=== PATIENT | male | born 1995 | race Caucasian/White ===

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

== ENCOUNTER 2017-07-24 15:37 | Emergency (ER) | payer OTHER ==
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
--- NOTE | 2017-07-24 15:55 | PDOC ---
Attending Attestation - Resident Resident Name: Karishma Mccormack - ED Attending Attestation I have performed the following: I have examined & evaluated the patient, The case was reviewed & discussed with the resident, I agree w/resident's findings & plan, Exceptions are as noted - HPI HPI: 21 yo M history substance abuse presents 3 hours post use of oxycodone. He was given narcan by PD prior to arrival. Patient is currently awake and alert. Offers no complaints. - Physicial Exam PE: GENERAL: Awake, alert, and fully oriented, in no acute distress HEAD: No signs of trauma EYES: PERRLA, EOMI, sclera anicteric, conjunctiva clear ENT: Auricles normal inspection, hearing grossly normal, nares patent, oropharynx clear without exudates. Moist mucosa NECK: Normal ROM, supple, no lymphadenopathy, JVD, or masses LUNGS: Breath sounds equal, clear to auscultation bilaterally. No wheezes, and no crackles HEART: Regular rate and rhythm, normal S1 and S2, no murmurs, rubs or gallops ABDOMEN: Soft, nontender, normoactive bowel sounds. No guarding, no rebound. No masses EXTREMITIES: Normal range of motion, no edema. No clubbing or cyanosis. No cords, erythema, or tenderness NEUROLOGICAL: Cranial nerves II through XII grossly intact. Normal speech, normal gait SKIN: Warm, Dry, normal turgor, no rashes or lesions noted. - Medical Decision Making 07/24/17 16:05 Pt is 3 hours post ingestion of oxycodone (without tylenol). He was given narcan by EMS, he is currently awake and alert. Will cont to monitor for alertness. As he used 3 hours ago, he is likely to maintain consciousness. 07/24/17 18:50 Late entry. Patient was initially stable for discharge, however, when he was getting ready to leave, he went to the ED bathroom multiple times, heard to be making loud noises and yelling at times, then came out of the bathroom with bloodshot eyes, initial hyperactivity, then falling asleep. AT this time, security was called to monitor, as was PD. PD call was cancelled when patient agreed to let security search his pockets. He had a needle but no substances, and a search of the bathroom was unrevealing. He was monitored in the ED for another hour after that point and remained awake and alert.
[2017-07-24 16:27] VITALS: BMI 27.4
[2017-07-24 19:11] VITALS: BP 132/84; PULSE 86; TEMP 98.1
== END 2017-07-24 19:14 | disposition home or self-care (01) ==
LOC: JER 15:37
DX: T40.2X4A Poisoning by other opioids, undetermined, initial encounter (principal); F11.10 Opioid abuse, uncomplicated
CPT/HCPCS: 99282-25

== ENCOUNTER 2017-11-12 20:49 | Emergency (ER) | payer OTHER ==
[2017-11-12 21:05] VITALS: BP 119/63; PULSE 102; TEMP 99.2; BMI 26.6
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
[2017-11-12] MEDS ORDERED: AMOX TR/POT CLAV 875MG/125MG TABLETS (FP) PO ONE (22:10)
[2017-11-12] MEDS ORDERED: AMOX TR/POT CLAV 875MG/125MG TABLETS (FP) ONE (22:13)
== END 2017-11-12 22:21 | disposition home or self-care (01) ==
LOC: FER 20:49
DX: L03.116 Cellulitis of left lower limb (principal); S80.812A Abrasion, left lower leg, initial encounter; S80.01XA Contusion of right knee, initial encounter; V18.0XXA Pedal cycle driver injured in noncollision transport accident in nontraffic accident, initial encounter; Y93.55 Activity, bike riding; Y92.89 Other specified places as the place of occurrence of the external cause
CPT/HCPCS: 73562-TC-RT-FY; 73590-TC-LT-FY; 73630-TC-LT; 99281-25

== ENCOUNTER 2018-05-25 23:50 | Emergency (ER) | payer OTHER ==
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
[2018-05-26 00:57] VITALS: BP 144/92; PULSE 104; TEMP 98.2; BMI 25.8
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
== END 2018-05-26 02:29 | disposition home or self-care (01) ==
LOC: JER 23:50
DX: T50.901A Poisoning by unspecified drugs, medicaments and biological substances, accidental (unintentional), initial encounter (principal); F19.10 Other psychoactive substance abuse, uncomplicated; Y92.511 Restaurant or cafe as the place of occurrence of the external cause
CPT/HCPCS: 99281-25

== ENCOUNTER 2018-05-27 11:58 | Emergency (ER) | payer OTHER ==
--- NOTE | 2018-05-27 12:05 | PDOC ---
History of Present Illness <Jane Spear - Last Filed: 05/27/18 13:32> - General History Source: Patient Exam Limitations: No Limitations - History of Present Illness Initial Comments: 05/27/18 14:35 The patient is a 22 year old male, with no significant past medical history, who presents to the emergency department with complaint of pain, tenderness and small ecchymosis to right thumb sustained after falling down a couple of stairs yesterday. He denies other injuries. The patient denies chest pain, shortness of breath, headache and dizziness. The patient denies fever, chills, nausea, vomit, diarrhea and constipation. The patient denies dysuria, frequency, urgency and hematuria. Allergies: NKDA <Maryana Aldana - Last Filed: 05/27/18 14:39> - General Chief Complaint: Pain, Acute Stated Complaint: RIGHT FINGER PAIN Time Seen by Provider: 05/27/18 12:05 Past History - Past Medical History Anemia: No Asthma: No Cancer: No Cardiac Disorders: No CVA: No COPD: No CHF: No Dementia: No Diabetes: No GI Disorders: No Disorders: No HTN: No Hypercholesterolemia: No Kidney Stones: No Liver Disease: No Seizures: No Thyroid Disease: No - Surgical History Abdominal Surgery: No Appendectomy: No Cardiac Surgery: No Cholecystectomy: No Lung Surgery: No Neurologic Surgery: No Orthopedic Surgery: No - Reproductive History Testicular Surgery: No - Immunization History Immunization Up to Date: Yes - Suicide/Smoking/Psychosocial Hx Smoking History: Current every day smoker Have you smoked in the past 12 months: Yes Number of Cigarettes Smoked Daily: 10 Cigars Per Day: 0 'Breaking Loose' booklet given: 08/23/17 Hx Alcohol Use: Yes Drug/Substance Use Hx: Yes Substance Use Type: Alcohol, Marijuana, Opiates Hx Substance Use Treatment: No <Jane Spear - Last Filed: 05/27/18 13:32> <Maryana Aldana - Last Filed: 05/27/18 14:39> - Past Medical History Allergies/Adverse Reactions: Allergies Allergy/AdvReac Type Severity Reaction Status Date / Time No Known Allergies Allergy Verified 05/27/18 11:59 Home Medications: Ambulatory Orders NK [No Known Home Medication] 05/27/18 Review of Systems - Review of Systems Able to Perform ROS?: Yes Comments:: 05/27/18 14:37 GENERAL/CONSTITUTIONAL: No fever or chills. No weakness. HEAD, EYES, EARS, NOSE AND THROAT: No change in vision. No ear pain or discharge. No sore throat. CARDIOVASCULAR: No chest pain or shortness of breath. RESPIRATORY: No cough, wheezing, or hemoptysis. GASTROINTESTINAL: No nausea, vomiting, diarrhea or constipation. GENITOURINARY: No dysuria, frequency, or change in urination. MUSCULOSKELETAL: (+) pain, tenderness and bruising to right thumb. No joint or muscle swelling. No neck or back pain. SKIN: No rash NEUROLOGIC: No headache, vertigo, loss of consciousness, or change in strength/ sensation. ENDOCRINE: No increased thirst. No abnormal weight change. HEMATOLOGIC/LYMPHATIC: No anemia, easy bleeding, or history of blood clots. ALLERGIC/IMMUNOLOGIC: No hives or skin allergy. <Maryana Aldana - Last Filed: 05/27/18 14:39> *Physical Exam - Vital Signs Last Vital Signs Temp Pulse Resp BP Pulse Ox 98.3 F 86 19 131/85 100 05/27/18 11:58 05/27/18 11:58 05/27/18 11:58 05/27/18 11:58 05/27/18 11:58 - Physical Exam Comments: 05/27/18 14:37 RIGHT HAND: Full ROM at wrist without tenderness. Theres is a very small area of ecchymosis over the dorsum of the MCP. Pt is able to oppose thumb against resistance. The patient is able to flex and extend against resistance at both the DIP and PIP joints. <Maryana Aldana - Last Filed: 05/27/18 14:39> *DC/Admit/Observation/Transfer - Discharge Dispostion Decision to Admit order: No <Jane Spear - Last Filed: 05/27/18 13:32> - Attestations Scribe Attestion: 05/27/18 14:39 Documentation prepared by Maryana Aldana, acting as biomedical engineering professor for Jane Spear MD, . <Maryana Aldana - Last Filed: 05/27/18 14:39> Diagnosis at time of Disposition: Thumb pain Qualifiers: Laterality: right Qualified Code(s): M79.644 - Pain in right finger(s) - Discharge Dispostion Disposition: HOME Condition at time of disposition: Good - Patient Instructions Printed Discharge Instructions: DI for Finger Sprain Additional Instructions: you came to the Ed for pain in your thumb. We did xrays which show no fracture. YOu should return to the ED for severe pain and swelling, if you are unable to bend or move your thumb or other new or worsening symptoms.
[2018-05-27 12:06] VITALS: BP 131/85; PULSE 86; TEMP 98.3; BMI 28.1
== END 2018-05-27 13:36 | disposition home or self-care (01) ==
LOC: FER 11:58
DX: M79.644 Pain in right finger(s) (principal); W22.01XA Walked into wall, initial encounter; Y93.89 Activity, other specified; Y92.89 Other specified places as the place of occurrence of the external cause; F17.210 Nicotine dependence, cigarettes, uncomplicated
CPT/HCPCS: 73110-TC-RT-FY; 73130-TC-RT-FY; 99281-25

== ENCOUNTER 2022-09-03 12:52 | Inpatient (IN) | payer OTHER ==
[2022-09-03 15:43] VITALS: BMI 30.8
[2022-09-03] MEDS ORDERED: BISMUTH SUBSALICYLATE 524 MG/30 ML PO PRN (15:53)
[2022-09-03] MEDS ORDERED: MAGNESIUM HYDROX 2400MG/30ML ORAL SUSPENSION 30 ML CUP PO PRN (15:53)
[2022-09-03] MEDS ORDERED: NALOXONE HCL 0.4 MG/ML VIAL IM PRN (15:53)
[2022-09-03] MEDS ORDERED: IBUPROFEN 400 MG TABLET (FP) PO PRN (15:53)
[2022-09-03] MEDS ORDERED: POLYETHYLENE GLYCOL (HEALTHYLAX) 3350 17 GM PACKET PO PRN (15:53)
[2022-09-03] MEDS ORDERED: guaiFENesin 600 MG TABLET.ER (FP) PO PRN (15:53)
[2022-09-03] MEDS ORDERED: DICYCLOMINE HCL 10 MG CAPSULE PO PRN (15:53)
[2022-09-03] MEDS ORDERED: IBUPROFEN 600 MG TABLET (FP) PO PRN (15:53)
[2022-09-03] MEDS ORDERED: ACETAMINOPHEN 325 MG TABLET (FP) PO PRN (15:53)
[2022-09-03] MEDS ORDERED: BENZONATATE 200 MG CAPSULE PO PRN (15:53)
[2022-09-03] MEDS ORDERED: MAG HYDROX/AL HYDROX/SIMETH 30 ML UNIT-DOSE CUP PO PRN (15:53)
[2022-09-03] MEDS ORDERED: ONDANSETRON *ODT* 4 MG TABLET SL PRN (15:53)
[2022-09-03] MEDS ORDERED: BENZOCAINE/MENTHOL (CHLORASEPTIC ) LOZENGE MM PRN (15:53)
[2022-09-03] MEDS ORDERED: hydrOXYzine PAMOATE 25 MG CAPSULE (FP) PO PRN (15:53)
[2022-09-03] MEDS ORDERED: NALOXONE HCL (KLOXXADO) 8 MG SPRAY NS PRN (15:53)
[2022-09-03] MEDS ORDERED: METHOCARBAMOL 500 MG TABLET PO PRN (15:53)
[2022-09-03] MEDS ORDERED: LOPERAMIDE HCL 2 MG CAPSULE PO PRN (15:53)
[2022-09-03] MEDS: LORazepam 2 MG TABLET PO SCH ×2 (17:21→23:01)
[2022-09-03] MEDS: PRENATAL VITAMINS W/ FOLIC ACID TABLET (FP) PO SCH (17:21)
[2022-09-03] MEDS: NICOTINE 14 MG/24 HOURS TOPICAL PATCH TD SCH (17:22)
[2022-09-03] MEDS ORDERED: MELATONIN 5 MG TABLETS PO SCH (22:00)
[2022-09-03] MEDS: THIAMINE HCL 100 MG TABLET (FP) PO SCH (23:00)
[2022-09-04] MEDS: LORazepam 2 MG TABLET PO SCH ×4 (05:37→22:29)
[2022-09-04] MEDS ORDERED: methaDONE HCL 10 MG TABLET PO SCH (09:15)
[2022-09-04] MEDS ORDERED: methaDONE 80 MG, methaDONE 10 MG PO ONE ×2 (09:15→13:00)
[2022-09-04] MEDS: PRENATAL VITAMINS W/ FOLIC ACID TABLET (FP) PO SCH (10:25)
[2022-09-04] MEDS: NICOTINE 14 MG/24 HOURS TOPICAL PATCH TD SCH (10:26)
[2022-09-04] MEDS ORDERED: methaDONE HCL 10 MG TABLET PO ONE (12:12)
[2022-09-04] MEDS: LORazepam 1 MG TABLET PO PRN ×2 (14:21→20:45)
[2022-09-04] MEDS ORDERED: SUVOREXANT 10 MG TABLET PO PRN (22:00)
[2022-09-04] MEDS: THIAMINE HCL 100 MG TABLET (FP) PO SCH (22:31)
[2022-09-05] MEDS: LORazepam 1 MG TABLET PO SCH ×2 (05:27→10:15)
[2022-09-05] MEDS ORDERED: methaDONE 80 MG, methaDONE 10 MG PO SCH (06:00)
[2022-09-05 06:09] VITALS: RESP 18
[2022-09-05 09:48] VITALS: BP 145/89; PULSE 96; TEMP 97.8
[2022-09-05] MEDS: NICOTINE 14 MG/24 HOURS TOPICAL PATCH TD SCH (10:12)
[2022-09-05] MEDS: PRENATAL VITAMINS W/ FOLIC ACID TABLET (FP) PO SCH (10:13)
[2022-09-06] MEDS ORDERED: LORazepam 0.5 MG TABLET PO PRN
[2022-09-06] MEDS ORDERED: LORazepam 0.5 MG TABLET PO SCH (05:00)
[2022-09-07] MEDS ORDERED: LORazepam 0.5 MG TABLET PO ONE (05:00)
== END 2022-09-05 12:20 | disposition left against medical advice (07) | DRG 770 ==
LOC: YASAS 12:52 → Y3N 16:03
PROVIDERS: ADMIT Allergy & Immunology; ATTEND Allergy & Immunology
PROC: HZ2ZZZZ Detoxification Services for Substance Abuse Treatment (ICD-10-PCS; principal; 2022-09-03)
DX: F11.23 Opioid dependence with withdrawal (principal); F13.230 Sedative, hypnotic or anxiolytic dependence with withdrawal, uncomplicated; F17.210 Nicotine dependence, cigarettes, uncomplicated; F19.282 Other psychoactive substance dependence with psychoactive substance-induced sleep disorder; F19.24 Other psychoactive substance dependence with psychoactive substance-induced mood disorder; F41.1 Generalized anxiety disorder; F32.A Depression, unspecified; Z28.310 Unvaccinated for COVID-19; Z28.9 Immunization not carried out for unspecified reason
CPT/HCPCS: 87635; 93005; 93010; Q0162